=== PATIENT | male | born 1990 | race Caucasian/White ===

== ENCOUNTER 2018-03-09 11:08 | Emergency (ER) | payer OTHER, SELFPAY ==
[2018-03-09 11:22] VITALS: BP 145/83; PULSE 82; RESP 14; TEMP 37.4; O2SAT 100; BMI 30.2
[2018-03-09 12:15] VITALS: BP 151/89; PULSE 77; RESP 16; O2SAT 99
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
== END 2018-03-09 12:20 | disposition home or self-care (01) ==
PROVIDERS: Emergency Provider Nurse Practitioner Family
DX: M54.9 Dorsalgia, unspecified (principal); V49.9XXA Car occupant (driver) (passenger) injured in unspecified traffic accident, initial encounter
CPT/HCPCS: 99282